=== PATIENT | male | born 1985 | race Caucasian/White ===

== ENCOUNTER 2020-03-02 15:06 | Emergency (ER) | payer MEDICAID, SELFPAY ==
[~2020-03-02 15:06] MED LIST: Sodium Chloride Irrig Solution 250 ML BOT ONE
[2020-03-02] MEDS ORDERED: Lidocaine 2% w/Epinephrine 1:200K 20 ML VIAL ONE (15:26)
[2020-03-02] MEDS ORDERED: Bacitracin 1 PK ONE (15:30)
[2020-03-02] MEDS ORDERED: Clindamycin 150 MG CAP ONE (15:30)
[2020-03-02] MEDS ORDERED: HYDROcodone/Acetaminophen 10/325 mg Tablet ONE (16:06)
[2020-03-02] MEDS ORDERED: Acetaminophen 325 MG TAB ONE (16:06)
[2020-03-02] MEDS ORDERED: Ibuprofen 800 MG TAB ONE (16:06)
== END 2020-03-02 16:15 | disposition home or self-care (01) ==
LOC: MADERS 15:06
DX: L02.212 Cutaneous abscess of back [any part, except buttock and flank] (principal); L03.312 Cellulitis of back [any part except buttock and flank]; F17.220 Nicotine dependence, chewing tobacco, uncomplicated
CPT/HCPCS: 10060